=== PATIENT | male | born 1955 | race African-American/Black ===

== ENCOUNTER → 2019-08-21 | Day surgery (SDC) | payer OTHER ==
[~2019-08-21] MED LIST: FOLI0.8C PO; IV RINGERS,LACTATED 1000ML 1,000 ML IV SCH; MESA800T9 PO; POTA10TA17 PO; PROPOFOL 20 ML IV ONE
--- NOTE | 2019-08-21 10:08 | CONS ---
DATE OF CONSULTATION: 08/21/2019 REFERRING PHYSICIAN: August Dorsey M.D. REASON FOR CONSULTATION: Ulcerative colitis with persistent diarrhea. HISTORY OF PRESENT ILLNESS: A 64-year-old male with past medical history significant for colonic polyps, diverticulitis, ulcerative colitis, anemia, seen with persistent diarrhea, has been on medical therapy without significant improvement. Surveillance biopsies were recommended with his longstanding UC and he is also having 1-15 loose bloody stools daily. Weight and appetite have been maintained. He is otherwise without additional complaints. PAST MEDICAL HISTORY: Ulcerative colitis, colon polyps, anemia, and arthritis. MEDICATIONS: Include folic acid, mesalamine, and potassium citrate. PAST SURGICAL HISTORY: He had a colon resection. FAMILY HISTORY: Significant for CVA with his father and hypertension with both parents. SOCIAL HISTORY: He is a nonsmoker and social drinker. REVIEW OF SYSTEMS: Per records. PHYSICAL EXAMINATION: GENERAL: Reveals a well-nourished, well-developed male who is alert, cooperative, in mild distress. VITAL SIGNS: Temperature 98.1, pulse 97, respirations 20. LUNGS: Clear. CARDIOVASCULAR: Reveals an S1, S2 without S3, S4 or appreciable murmur. ABDOMEN: Reveals a soft abdomen, normal bowel sounds, without appreciable hepatosplenomegaly. EXTREMITIES: Reveals no cyanosis, clubbing or edema. IMPRESSION AND PLAN: Ulcerative colitis with bleeding. He has been resistant to therapy. We will recommend interval scope with possible biopsies for surveillance. Risks and benefits of procedure have been discussed. The patient will be sent to procedure suite and is willing to proceed at this time. ALYCE MAO MD DR: RAOUL/angel JOB#: [id number] / [id number]
[2019-08-21 10:32] VITALS: BP 135/78
--- NOTE | 2019-08-24 17:06 | PATHOLOGY ---
[facility] Accession Number: [id number] . 01 Material submitted: . PART A: colon - RANDOM COLON BIOPSIES - RIGHT COLON. Modifiers: right PART B: colon - RANDOM COLON BIOPSIES - TRANSVERSE COLON. Modifiers: transverse PART C: colon - RANDOM COLON BIOPSIES - LEFT COLON. Modifiers: left . 01 Clinical history: . Diarrhea, history of ulcerative colitis . 02 Diagnosis: A. Colonic mucosa, right colon random biopsies: - Focal mild active colitis (acute cryptitis). . B. Colonic mucosa, transverse colon random biopsies: - Focal mild active colitis (acute cryptitis). . C. Colonic mucosa, left colon random biopisies: - Moderate to marked active chronic colitis with ulceration. (JPM:navya; 08/24/2019) S 08/24/2019 1130 Local . 02 Comment: Sections of the right colon and transverse colon random biopsies appear similar and reveal multiple segments of colonic mucosa which for the most part appear relatively normal. There are scattered foci of mild active colitis (acute cryptitis). There is no crypt architectural distortion. There is no dysplasia or evidence of malignancy. . Sections of the left colon random biopsies reveal multiple segments of colonic mucosa showing moderate to marked active chronic inflammation with ulceration, acute cryptitis, crypt abscesses, and crypt architectural distortion. The findings are consistent with active chronic ulcerative colitis. There is no dysplasia or evidence of malignancy. (JPM:navya; 08/24/2019) . 02 Electronically signed: . Sanjeev Luis MD, Pathologist NPI- [id number] . 01 Gross description: . A. The specimen is received in formalin labeled "[place], random colon biopsies-right colon" and consists of multiple fragments of pink-roach tissue measuring 1.1 x 0.9 x 0.2 cm in aggregate which are entirely submitted in A1. . B. The specimen is received in formalin labeled "Pinto, Edward, random colon biopsies-transverse colon" and consists of multiple fragments of pink-roach tissue measuring 1.4 x 1.3 x 0.2 cm in aggregate which are entirely submitted in B1. . C. The specimen is received in formalin labeled "Pinto, Edward, random colon biopsies-left colon" and consists of multiple fragments of pink-roach tissue measuring 1.2 x 0.9 x 0.3 cm in aggregate which are entirely submitted in C1. ([facility]; 08/21/2019) JFQ/JFQ 08/21/2019 1456 Local . 02 Pathologist provided ICD-10: K63.3, K52.9 . 02 CPT . 863428, 991584, 535371 Specimen Comment: A courtesy copy of this report has been sent to [phone], [phone] Specimen Comment: [id number] Specimen Comment: Report sent to / [facility] Performed at: 01 [facility] [place] [address] [facility] [address], [place] [id number] MD Esdras Mendez MD Phone: [phone] Performed at: 02 [facility] [place] [address] [place], [place] [id number] MD Sanjeev Luis MD Phone: [phone]
== END | disposition home or self-care (01) ==
LOC: ENDOS 08:31
PROVIDERS: ATTEND Internal Medicine Gastroenterology
DX: K92.1 Melena (principal); K51.80 Other ulcerative colitis without complications; R19.7 Diarrhea, unspecified; K64.0 First degree hemorrhoids; K57.30 Diverticulosis of large intestine without perforation or abscess without bleeding; M19.90 Unspecified osteoarthritis, unspecified site; D64.9 Anemia, unspecified; Z88.1 Allergy status to other antibiotic agents; Z88.8 Allergy status to other drugs, medicaments and biological substances; Z79.899 Other long term (current) drug therapy; Z82.49 Family history of ischemic heart disease and other diseases of the circulatory system; Z82.3 Family history of stroke
CPT/HCPCS: 45380; J2704; 88305